=== PATIENT | female | born 1995 | race Caucasian/White ===

== ENCOUNTER 2017-11-10 20:50 | Emergency (ER) | payer MEDICAID, SELFPAY ==
--- NOTE | 2017-11-10 22:49 | ULT ---
PELVIC ULTRASOUND 11/10/17 HISTORY: Pelvic cramping, pain. Evaluate for ectopic . Multiple longitudinal and transverse images of the pelvis is obtained using a multihertz curvilinear transabdominal as well as multihertz endovaginal transducers. Real time, color flow, and spectral wav eform doppler analysis demonstrates the uterus to measure 8.4 x 3.7 x 5.2 cm. There is a gestational sac with a yolk sac seen in the uterine cavity. A pole definitively is not visualized. No evidence of free pelvic fluid seen. Both ovaries visualized with good blood flow. The right ovary measures 3.0 x 1.5 x 3.3 cm while the left ovary measures 2.7 x 1.9 x 2.7 cm. IMPRESSION: Gestational sac and yolk sac seen in the uterine cavity. POS: [facility]
== END 2017-11-11 00:25 | disposition home or self-care (01) ==
LOC: ERS 20:50
DX: O02.1 Missed abortion (principal)
CPT/HCPCS: 36415; 76856; 86900; 86901